=== PATIENT | female | born 2000 | race Caucasian/White ===

== ENCOUNTER → 2019-10-11 | Outpatient (CLI) | payer BC, OTHER ==
[2019-10-11 12:39] LABS: Basophils # (A) 0.1 k/uL (0-0.2); Basophils % (A) 0 %; Eosinophils # (A) 0.1 k/uL (0-0.7); Eosinophils % (A) 1 %; HGB 14.6 gm/dL (11.4-16.0); Lymphocytes # (A) 5.6 k/uL (1.0-4.8); Lymphocytes % (A) 37 %; MCH 30.2 pg (25.0-35.0); MCV 88.8 fL (80.0-100.0); Mean Platelet Volume 7.6; Monocytes # (A) 0.6 k/uL (0-1.0); Monocytes % (A) 4 %; Neutrophils # (A) 8.5 k/uL (1.3-7.7); Neutrophils % (A) 56 %; Platelet Count 334 k/uL (150-450); RBC 4.84 m/uL (3.80-5.40); RDW 13.8 % (11.5-15.5); WBC 15.3 k/uL (4.0-11.0)
[2019-10-11 17:49] LABS: ALT 13 U/L (8-44); AST 14 U/L (13-35); Albumin/Globulin Ratio 1.67 (1.60-3.17); Alkaline Phosphatase 66 U/L (41-126); BUN/Creat Ratio 16.25 Ratio (12.00-20.00); C Reactive Protein <0.4 mg/dL (0.0-0.8); Calcium 9.7 mg/dL (8.7-10.3); Carbon Dioxide 21.5 mmol/L (21.6-31.8); Chloride 103 mmol/L (96-109); Globulin 2.7 g/dL (1.6-3.3); Glucose 92 mg/dL (70-110); Non-African American GFR(CKD) 106.1 (60.0-200.0); Potassium 3.5 mmol/L (3.5-5.5); Sodium 138 mmol/L (135-145); Total Bilirubin 0.4 mg/dL (0.3-1.2); Total Protein 7.2 g/dL (6.2-8.2)
[2019-10-11 18:38] LABS: HCT 39.6 % (34.0-46.0); HGB 13.7 gm/dL (11.4-16.0); MCH 30.2 pg (25.0-35.0); MCHC 34.5 g/dL (31.0-37.0); MCV 87.3 fL (80.0-100.0); Mean Platelet Volume 8.2; Platelet Count 362 k/uL (150-450); RBC 4.53 m/uL (3.80-5.40); RDW 13.7 % (11.5-15.5); WBC 14.1 k/uL (4.0-11.0)
[2019-10-14 12:52] LABS: ALT 15; AST 23
[2019-10-14 12:53] LABS: Total Bilirubin 0.3
[2019-10-14 12:54] LABS: Calcium 9.4; Total Protein 7.1
[2019-10-14 13:12] LABS: Carbon Dioxide 22.8; Chloride 102
[2019-10-14 13:13] LABS: Sodium 138
[2019-10-14 13:14] LABS: African American GFR (CKD) 106.7; Alkaline Phosphatase 64
== END | disposition home or self-care (01) ==
LOC: LABWHC1 10:30
PROVIDERS: ATTEND General Practice
DX: K50.818 Crohn's disease of both small and large intestine with other complication (principal); D50.0 Iron deficiency anemia secondary to blood loss (chronic); A49.8 Other bacterial infections of unspecified site
CPT/HCPCS: 36415; 80053; 80280; 82397; 85025; 85027; 86140

== ENCOUNTER → 2020-02-26 | Outpatient (CLI) | payer BC, OTHER ==
[2020-02-26 11:28] LABS: Basophils # (A) 0.1 k/uL (0-0.2); Basophils % (A) 1 %; Eosinophils # (A) 0.1 k/uL (0-0.7); Eosinophils % (A) 1 %; HCT 38.8 % (34.0-46.0); HGB 13.1 gm/dL (11.4-16.0); Lymphocytes # (A) 2.9 k/uL (1.0-4.8); Lymphocytes % (A) 28 %; MCH 28.8 pg (25.0-35.0); MCHC 33.7 g/dL (31.0-37.0); MCV 85.3 fL (80.0-100.0); Mean Platelet Volume 7.6; Monocytes # (A) 0.3 k/uL (0-1.0); Monocytes % (A) 3 %; Neutrophils # (A) 6.7 k/uL (1.3-7.7); Neutrophils % (A) 65 %; Platelet Count 298 k/uL (150-450); RBC 4.55 m/uL (3.80-5.40); RDW 12.9 % (11.5-15.5); WBC 10.3 k/uL (4.0-11.0)
[2020-02-26 18:47] LABS: Albumin 4.6 g/dL (3.80-4.90); Albumin/Globulin Ratio 1.84 (1.60-3.17); Anion Gap 10.2 mmol/L (4.00-12.00); BUN/Creat Ratio 11.25 Ratio (12.00-20.00); C Reactive Protein 1.4 mg/dL (0.0-0.8); Calcium 9.4 mg/dL (8.7-10.3); Carbon Dioxide 25.8 mmol/L (21.6-31.8); Globulin 2.5 g/dL (1.6-3.3); Non-African American GFR(CKD) 106.1 (60.0-200.0); Potassium 4.1 mmol/L (3.5-5.5); Total Bilirubin 0.5 mg/dL (0.3-1.2); Total Protein 7.1 g/dL (6.2-8.2)
[2020-02-26 19:27] LABS: Erythrocyte Sedimentation Rate 27 mm/Hr (0-20)
== END | disposition home or self-care (01) ==
LOC: LABWHC1 10:26
PROVIDERS: ATTEND Nurse Practitioner
DX: K50.90 Crohn's disease, unspecified, without complications (principal); R19.7 Diarrhea, unspecified
CPT/HCPCS: 36415; 80053; 83993; 85025; 85652; 86140

== ENCOUNTER → 2020-12-24 | Outpatient (CLI) | payer BC, OTHER ==
--- NOTE | 2020-12-24 12:01 | XR ---
EXAMINATION TYPE: XR Hip Complete LT DATE OF EXAM: 12/24/2020 COMPARISON: NONE HISTORY: 20-year-old female M2 5.552 TECHNIQUE: 2 views FINDINGS: No acute fracture, subluxation, dislocation. Hip joint space appears maintained. IMPRESSION: No acute osseous abnormality seen.
== END | disposition home or self-care (01) ==
LOC: LABWHC1 07:56
PROVIDERS: ATTEND Nurse Practitioner Family
DX: M25.552 Pain in left hip (principal); R00.0 Tachycardia, unspecified
CPT/HCPCS: 36415; 73502; 83835

== ENCOUNTER → 2021-01-21 | Outpatient (CLI) | payer BC, OTHER ==
[2021-01-21 11:21] LABS: Basophils # (A) 0.03 X 10*3/uL (0.00-0.10); Basophils % (A) 0.3 %; Eosinophils # (A) 0.08 X 10*3/uL (0.04-0.35); Eosinophils % (A) 0.8 %; HCT 38.3 % (37.2-46.3); HGB 12.5 g/dL (12.0-15.0); Lymphocytes # (A) 3.46 X 10*3/uL (0.90-5.00); Lymphocytes % (A) 34.5 %; MCH 28.4 pg (27.0-32.0); MCHC 32.6 g/dL (32.0-37.0); Mean Platelet Volume 10.7 fL (9.5-12.2); Monocytes # (A) 0.48 X 10*3/uL (0.20-1.00); Monocytes % (A) 4.8 %; Neutrophils # (A) 5.95 X 10*3/uL (1.80-7.70); Neutrophils % (A) 59.3 %; Platelet Count 290 X 10*3/uL (140-440); WBC 10.03 X 10*3/uL (4.50-10.00)
[2021-01-21 15:06] LABS: African American GFR (CKD) 122.7 (60.0-200.0); Albumin 4.3 g/dL (3.8-4.9); Albumin/Globulin Ratio 1.49 (1.60-3.17); Anion Gap 17.4 mmol/L (4.00-12.00); BUN/Creat Ratio 12.38 Ratio (12.00-20.00); Blood Urea Nitrogen 9.9 mg/dL (9.0-27.0); C Reactive Protein 1.7 mg/dL (0.00-0.80); Calcium 9.3 mg/dL (8.7-10.3); Carbon Dioxide 18.8 mmol/L (21.6-31.8); Globulin 2.9 g/dL (1.6-3.3); Non-African American GFR(CKD) 105.9 (60.0-200.0); Potassium 4.1 mmol/L (3.5-5.5); Total Bilirubin 0.2 mg/dL (0.30-1.20); Total Protein 7.2 g/dL (6.2-8.2)
== END | disposition home or self-care (01) ==
LOC: LABWHC1 07:55
PROVIDERS: ATTEND Nurse Practitioner
DX: K50.80 Crohn's disease of both small and large intestine without complications (principal)
CPT/HCPCS: 36415; 80053; 85025; 86140

== ENCOUNTER 2021-03-12 11:59 | Emergency (ER) | payer BC, OTHER ==
--- NOTE | 2021-03-12 13:26 | ED ---
General Adult HPI - General Stated complaint: Lt Hip Pain Time Seen by Provider: 03/12/21 13:14 Source: RN notes reviewed - History of Present Illness Initial comments: 20-year-old female presents to the emergency Department with complaints of left hip pain that has been an ongoing issue for the past month. Patient states she has been seen by her primary care provider. She has already had x-rays and has done physical therapy twice a week for 4 weeks. States she has taken anti- inflammatory medications and oral steroids with no relief. Patient states she called her primary care provider this morning who said that she needed to come to the ER for further evaluation and treatment. Denies any injury, trauma, back pain, or pelvic pain; no foot drop, muscle weakness, or sharp/shooting pain. - Related Data Home Medications Medication Instructions Recorded Confirmed Dicyclomine [Bentyl] 20 mg PO QID PRN 03/12/21 03/12/21 Doxepin HCl [SINEquan] 100 mg PO DAILY 03/12/21 03/12/21 Multivitamins, Thera [Multivitamin 1 tab PO DAILY 03/12/21 03/12/21 (formulary)] Nadolol [Corgard] 20 mg PO BID 03/12/21 03/12/21 Omeprazole 20 mg PO DAILY 03/12/21 03/12/21 Vilazodone HCl [Viibryd] 40 mg PO DAILY 03/12/21 03/12/21 busPIRone HCl [Buspar] 10 mg PO BID 03/12/21 03/12/21 diphenhydrAMINE [Benadryl] 50 mg PO HS 03/12/21 03/12/21 metFORMIN HCL [Glucophage] 500 mg PO BID 03/12/21 03/12/21 rOPINIRole HCL [Requip] 2 mg PO HS 03/12/21 03/12/21 valACYclovir HCL [Valtrex] 1,000 mg PO DAILY 03/12/21 03/12/21 Previous Rx's Medication Instructions Recorded Ibuprofen [Motrin] 600 mg PO Q8HR PRN #30 tab 03/12/21 Allergies Allergy/AdvReac Type Severity Reaction Status Date / Time No Known Allergies Allergy Verified 03/12/21 14:40 Review of Systems ROS Statement: Those systems with pertinent positive or pertinent negative responses have been documented in the HPI. ROS Other: All systems not noted in ROS Statement are negative. General Exam Limitations: no limitations (This is a well-developed, well-nourished female in no acute distress.) General appearance: alert, in no apparent distress Respiratory exam: Present: normal lung sounds bilaterally. Absent: respiratory distress, wheezes, rales, rhonchi, stridor Cardiovascular Exam: Present: regular rate, normal rhythm, normal heart sounds. Absent: systolic murmur, diastolic murmur, rubs, gallop, clicks GI/Abdominal exam: Present: soft, normal bowel sounds. Absent: distended, tenderness, guarding, rebound, rigid Left Hip exam: Present: normal inspection, pelvic stability. Absent: full ROM (Range of motion limited by pain, weightbearing activity, and repositioning), tenderness, deformity, crepitus, external rotation, internal rotation, shortening Upper Leg exam: Present: normal inspection, full ROM. Absent: tenderness Knee exam: Present: normal inspection, full ROM. Absent: tenderness, swelling Lower Leg exam: Present: normal inspection, full ROM. Absent: tenderness, swelling Ankle exam: Present: normal inspection, full ROM Foot/Toe exam: Present: normal inspection, full ROM Neurovascular tendon exam: Present: no vascular compromise Back exam: Present: normal inspection Neurological exam: Present: alert, oriented X3, CN II-XII intact Psychiatric exam: Present: normal affect, normal mood Skin exam: Present: warm, dry, intact, normal color. Absent: rash Course Vital Signs 03/12/21 03/12/21 13:40 14:39 Temperature 98.9 F Pulse Rate 107 H 96 Respiratory 18 18 Rate Blood Pressure 129/71 O2 Sat by Pulse 96 Oximetry Medical Decision Making - Medical Decision Making 20-year-old female was evaluated for complaints of left hip pain 1 month. Upon exam, extremity appears normal, with no evidence deformity, dislocation, trauma, or injury. Patient is able to ambulate without difficulty and has slight decreased range of motion secondary to pain. This hip was x-rayed by her primary care provider and shows no acute osseous abnormality. Because patient has not had any injury and shows no signs of infection, no further imaging was ordered. Patient has also done 4 weeks of physical therapy twice weekly and has completed a course of oral steroids. Patient was given a dose of pain medication while present in the emergency department. Motrin was prescribed. Work note was provided. Patient will be discharged home to follow up with her primary care provider as well as with orthopedics as needed. Return parameters were discussed in detail. Patient verbalizes understanding and agrees with this plan. THis patient's care was discussed with my attending Dr. Aldana. Disposition Clinical Impression: Hip pain, left Disposition: HOME SELF-CARE Condition: Stable Instructions (If sedation given, give patient instructions): Arthralgia (ED), Hip Pain (ED) Additional Instructions: Rest as needed. Maintain mobility with regular gentle range of motion exercises. Follow-up with orthopedics for further evaluation and treatment of left hip pain. May take Motrin for discomfort. Return to the emergency department with any new, worsening, or concerning symptoms. Prescriptions: Ibuprofen [Motrin] 600 mg PO Q8HR PRN #30 tab PRN Reason: Pain Is patient prescribed a controlled substance at d/c from ED?: No Referrals: Tariq Tamayo III, MD [Primary Care Provider] - 1-2 days Fantasma Virk PAC [PHYSICIAN FISH AND WILDLIFE BIOLOGIST] - 1-2 days Time of Disposition: 14:21
[2021-03-12] MEDS ORDERED: KETOROLAC 30 MG/ML 1 ML VIAL IM STA (13:32)
[2021-03-12 13:46] VITALS: BP 129/71; RESP 18; TEMP 98.9
[2021-03-12] MEDS ORDERED: traMADol 50 MG STARTER PACK 3 TAB BTL PO STA (14:22)
[2021-03-12 14:40] VITALS: PULSE 96
== END 2021-03-12 14:39 | disposition home or self-care (01) ==
LOC: EC 11:59
DX: M25.552 Pain in left hip (principal)
CPT/HCPCS: 99283; 96372; J1885

== ENCOUNTER → 2021-04-30 | Outpatient (CLI) | payer BC, OTHER ==
--- NOTE | 2021-05-01 03:34 | MR ---
EXAMINATION TYPE: MR hip LT wo con DATE OF EXAM: 04/30/2021 COMPARISON: None HISTORY: Left hip pain, limited movement. Multiplanar multiecho imaging of the pelvis and both hips without contrast. On the T1 images there is abnormal decreased signal in the subcutaneous articular femoral heads bilat erally. This is larger on the left side that measures 18 x 8 mm. On the right side lesion measures 13 x 5 mm. The acetabula appear intact. There is no evidence of a soft tissue mass. There is bilateral hip joint effusions and larger on the left side. There is no free fluid in the pelvis. IMPRESSION: There is bilateral avascular necrosis of the femoral heads and slightly larger on the left side. Bila teral hip joint effusions and larger on the left side. No significant collapse of the articular surfa violeta.
== END | disposition home or self-care (01) ==
LOC: RADMRIMAIN 19:52
PROVIDERS: ATTEND Orthopaedic Surgery
DX: M87.852 Other osteonecrosis, left femur (principal); M87.851 Other osteonecrosis, right femur; M25.452 Effusion, left hip; M25.451 Effusion, right hip

== ENCOUNTER → 2021-06-04 | Outpatient (CLI) | payer BC, OTHER ==
[2021-06-04 11:44] LABS: Basophils # (A) 0.02 X 10*3/uL (0.00-0.10); Basophils % (A) 0.2 %; Eosinophils # (A) 0.05 X 10*3/uL (0.04-0.35); Eosinophils % (A) 0.6 %; HCT 37.6 % (37.2-46.3); HGB 12.3 g/dL (12.0-15.0); Immature Grans, Automated 0.3 %; Lymphocytes # (A) 2.79 X 10*3/uL (0.90-5.00); MCH 29.4 pg (27.0-32.0); MCHC 32.7 g/dL (32.0-37.0); MCV 89.7 fL (80.0-97.0); Mean Platelet Volume 11.3 fL (9.5-12.2); Monocytes # (A) 0.81 X 10*3/uL (0.20-1.00); Monocytes % (A) 9.3 %; NRBC Per 100 WBC 0 /100 WBCS (0.0-0.0); Neutrophils # (A) 5.03 X 10*3/uL (1.80-7.70); Neutrophils % (A) 57.6 %; Platelet Count 270 X 10*3/uL (140-440); RBC 4.19 X 10*6/uL (4.10-5.20); RDW 13.2 % (11.5-14.5); WBC 8.73 X 10*3/uL (4.50-10.00)
[2021-06-04 12:07] LABS: ALT 20 U/L (8-44); AST 21 U/L (13-35); African American GFR (CKD) 142.5 (60.0-200.0); Albumin 4.4 g/dL (3.8-4.9); Albumin/Globulin Ratio 1.63 (1.60-3.17); Alkaline Phosphatase 56 U/L (41-126); BUN/Creat Ratio 13.57 Ratio (12.00-20.00); Blood Urea Nitrogen 9.5 mg/dL (9.0-27.0); Calcium 9.4 mg/dL (8.7-10.3); Carbon Dioxide 21.3 mmol/L (20.0-27.5); Chloride 104 mmol/L (96-109); Globulin 2.7 g/dL (1.6-3.3); Glucose 99 mg/dL (70-110); Potassium 4.1 mmol/L (3.5-5.5); Sodium 139 mmol/L (135-145); Total Bilirubin <0.15 mg/dL (0.30-1.20); Total Protein 7.1 g/dL (6.2-8.2)
== END | disposition home or self-care (01) ==
LOC: LABWHC1 07:08
PROVIDERS: ATTEND Nurse Practitioner Family
DX: Z01.810 Encounter for preprocedural cardiovascular examination (principal)
CPT/HCPCS: 36415; 80053; 85025; 85730; 93005

== ENCOUNTER → 2021-07-28 | Outpatient (CLI) | payer BC, OTHER ==
[2021-07-28 14:45] LABS: Basophils # (A) 0.03 X 10*3/uL (0.00-0.10); Basophils % (A) 0.3 %; HCT 38.7 % (37.2-46.3); HGB 12.7 g/dL (12.0-15.0); Immature Grans, Automated 0.3 %; Lymphocytes # (A) 3.83 X 10*3/uL (0.90-5.00); Lymphocytes % (A) 38.6 %; MCH 29.7 pg (27.0-32.0); MCHC 32.8 g/dL (32.0-37.0); MCV 90.4 fL (80.0-97.0); Monocytes # (A) 0.57 X 10*3/uL (0.20-1.00); Monocytes % (A) 5.7 %; NRBC Per 100 WBC 0 /100 WBCS (0.0-0.0); Neutrophils # (A) 5.37 X 10*3/uL (1.80-7.70); Neutrophils % (A) 54.1 %; Platelet Count 254 X 10*3/uL (140-440); RBC 4.28 X 10*6/uL (4.10-5.20); RDW 12.8 % (11.5-14.5); WBC 9.93 X 10*3/uL (4.50-10.00)
[2021-07-28 15:06] LABS: Albumin 4.4 g/dL (3.8-4.9); Albumin/Globulin Ratio 1.69 (1.60-3.17); Anion Gap 13.3 mmol/L (10.00-18.00); BUN/Creat Ratio 31.67 Ratio (12.00-20.00); Calcium 9.2 mg/dL (8.7-10.3); Carbon Dioxide 22.7 mmol/L (20.0-27.5); Globulin 2.6 g/dL (1.6-3.3); Non-African American GFR(CKD) 129.4 (60.0-200.0); Total Bilirubin 0.2 mg/dL (0.30-1.20)
== END | disposition home or self-care (01) ==
LOC: LABWHC1 09:42
PROVIDERS: ATTEND Internal Medicine Gastroenterology
DX: K50.80 Crohn's disease of both small and large intestine without complications (principal)
CPT/HCPCS: 36415; 80053; 85025

== ENCOUNTER → 2021-08-19 | Outpatient (CLI) | payer BC, OTHER ==
[2021-08-19 08:54] LABS: INR 0.9 (<1.2); Partial Thromboplastin Time 25.1 sec (22.0-30.0); Prothrombin Time 10.2 sec (9.0-12.0)
[2021-08-19 10:38] LABS: HCT 37.2 % (37.2-46.3); HGB 12.1 g/dL (12.0-15.0); MCH 28.7 pg (27.0-32.0); MCHC 32.5 g/dL (32.0-37.0); MCV 88.4 fL (80.0-97.0); Mean Platelet Volume 10.7 fL (9.5-12.2); NRBC Per 100 WBC 0 /100 WBCS (0.0-0.0); Platelet Count 286 X 10*3/uL (140-440); RBC 4.21 X 10*6/uL (4.10-5.20); RDW 12.5 % (11.5-14.5); WBC 8.26 X 10*3/uL (4.50-10.00)
[2021-08-19 10:45] LABS: African American GFR (CKD) 142.5 (60.0-200.0); Albumin 4.3 g/dL (3.8-4.9); Albumin/Globulin Ratio 1.43 (1.60-3.17); Anion Gap 12.8 mmol/L (10.00-18.00); BUN/Creat Ratio 14.71 Ratio (12.00-20.00); Blood Urea Nitrogen 10.3 mg/dL (9.0-27.0); Calcium 9.4 mg/dL (8.7-10.3); Carbon Dioxide 23.2 mmol/L (20.0-27.5); Total Bilirubin 0.3 mg/dL (0.30-1.20); Total Protein 7.3 g/dL (6.2-8.2)
[2021-08-19 11:58] LABS: Appearance,Urine Cloudy (Clear); Bilirubin,Urine Negative (Negative); Blood,Urine Negative (Negative); Color,Urine Yellow (Yellow); Ketones,Urine Negative (Negative); Nitrite,Urine Negative (Negative); Specific Gravity,Urine 1.019 (1.001-1.030); Urobilinogen,Urine 0.2 (0.2,1.0)
[2021-08-19 12:34] LABS: Bacteria,Urine 3+ /HPF (None Seen)
== END | disposition home or self-care (01) ==
LOC: LABPAT 07:51
PROVIDERS: ATTEND Orthopaedic Surgery
DX: Z01.812 Encounter for preprocedural laboratory examination (principal)
CPT/HCPCS: 36415; 80053; 81001; 85027; 85610; 85730; 87070

== ENCOUNTER 2021-08-31 07:55 | Observation (INO) | payer BC, OTHER ==
[2021-08-27 13:03] VITALS: BMI 41.5
[~2021-08-31 07:55] MED LIST: ACETAMINOPHEN TAB 500 MG TAB PO PRN; DEXAMETHASONE SOD PHOSPHATE 4 MG/ML 1 ML VIAL IV ONE; GABAPENTIN 300 MG CAP PO PRN; LIDOCAINE 1% (10MG/ML) FOR IV START INTRADERMA PRN; MELOXICAM 7.5 MG TAB PO PRN; MIDAZOLAM 2 MG/2 ML VIAL IV PRN; ONDANSETRON 4 MG/2 ML VIAL IVP ONE; TRANEXAMIC ACID IN NACL,ISO-OS 1,000 MG in SALINE 1 100ML.BAG IVPB PRN
[2021-08-31 08:45] LABS: Glucose,Whole Blood 94 mg/dL (75-99)
[2021-08-31] MEDS: LACTATED RINGERS 1,000 ML IV SCH (08:49)
[2021-08-31] MEDS ORDERED: KETAMINE 10 MG/ML 20 ML VIAL ONE (08:53)
[2021-08-31] MEDS ORDERED: MIDAZOLAM 2 MG/2 ML VIAL ONE (08:53)
[2021-08-31] MEDS ORDERED: fentaNYL (PF) 50 MCG/ML 2 ML AMP ONE (08:53)
[2021-08-31] MEDS ORDERED: TRANEXAMIC ACID IN NACL,ISO-OS 1,000 MG/100 ML BAG ONE (08:53)
[2021-08-31] MEDS ORDERED: PROPOFOL 10 MG/ML 20 ML VIAL IV ONE (08:53)
[2021-08-31] MEDS ORDERED: ceFAZolin 1,000 MG in SODIUM CHLORIDE 0.9% 1,000 ML IRRIGATION ONE (08:56)
[2021-08-31] MEDS ORDERED: ROPIVACAINE 5 MG/ML 30 ML VIAL MISCELLANE ONE ×2 (09:19→10:12)
--- NOTE | 2021-08-31 10:18 | P.OP ---
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 The articulation is Oxinium on polyethylene. Anesthesia: spinal Surgeon: Italo Ochoa Alpine Patroller #1: Angela Mujica Estimated Blood Loss (ml): 300 Pathology: other (Femoral head) Condition: stable Disposition: PACU Indications for Procedure: After failure of conservative treatment we discussed the surgical and nonsurgical treatment options at length. Patient wishes to proceed with a total hip arthroplasty with a direct anterior approach. Complications specific to this procedure were discussed at length, including but not limited to infection, leg length discrepancy, dislocation, nerve injury, and fracture. Covid-19 was also discussed at length with the patient, and they are aware of the current policies and procedures. The patient was given the option of delaying surgery, but they elect to proceed knowing these risks. Patient is aware of all these complications and informed consent was obtained Operative Findings: The operative findings are consistent with severe avascular necrosis of the left hip femoral head collapse Description of Procedure: Patient was seen and evaluated in the preoperative area and the consent was reviewed. The operative site was marked with a skin marker. The patient was then brought to the operating room and given preoperative antibiotics intravenously. 1 g of Tranexamic acid was also given intravenously. A spinal anesthetic was administered by the anesthesia department. The patient was then placed on the Romance table with the bony prominences well-padded. The hip area was then prepped with a ChloraPrep solution and draped in the usual sterile f ashion. A universal timeout was then performed, which confirmed the patient's name, surgical site, ALLERGIES, and procedure being performed on the consent. Next the incision site was located at 1 cm distal and 2 cm lateral to the anterior superior iliac spine. The skin and subcutaneous tissues were sharply incised. Incision was carefully dissected down to the fascia overlying the tensor fascia alissa muscle. This fascia was then incised in line with the incision. Care was taken to stay laterally in order to avoid injuring the lateral femoral cutaneous nerve. Next, using blunt finger dissection, the tensor fascia alissa muscle was dissected off its investing fascia. The muscle was then carefully retracted laterally with a cobra retractor over the lateral neck of the femur. Next, the circumflex vessels were identified and cauterized using the AquaMantis device. The anterior hip capsule was then exposed. The capsule was then opened and an inverted T fashion. Cobra retractors were then placed intracapsularly. The retractors were maintained intracapsular throughout the procedure. The proximal femur was then visualized. Fluoroscopic x-rays were then taken in order to evaluate the preoperative leg lengths. A small amount of traction was placed on the leg. The femoral neck was then osteotomized at the appropriate level above the lesser trochanter. A small wedge of bone was then removed from the remaining femoral head. Next, using a corkscrew the femoral head was removed from the acetabulum. On gross visual inspection, the femoral head had evidence of avascular necrosis with femoral head collapse. The femoral head was then measured. Attention was then turned to the acetabulum. The acetabulum was exposed and any remaining labrum was excised. Sequential reaming of the acetabulum was performed using fluoroscopic guidance until there was a good bed of bleeding cancellus bone. When the appropriate size was reached, a trial was then placed. The position and fit of the trial was checked with fluoroscopy. The trial was then removed. Then, using fluoroscopic guidance, the final implant was impacted at 20 of anteversion and 40 of abduction, and fully seated in the acetabulum. 2 screws were then placed in the acetabulum. Again fluoroscopy was used to check position of the screws. Next, the liner was then impacted, with a 20 elevated liner located in the anterior superior quadrant. Component locking was confirmed. Attention was then directed to the femur. With the aid of the Romance table, the femur was externally rotated to approximately 130, extended, and adducted under the opposite leg. A side hook was then placed under the proximal femur, and the side hook elevator was used to elevate the proximal femur while releasing the capsule. Retractors were then placed. A capsular release was performed, as well as a release of the conjoined tendon, which afforded excellent visualization of the proximal femur. Next, a box osteotome was used to lateralize the proximal femur. A handyperson was then used to locate the femoral canal. Sequential broaching was then performed with appropriate size which afforded excellent fixation in the proximal femur. A trial was then placed with appropriate head and neck, and the hip was gently reduced with the aid of the Romance table. Fluoroscopy was then used to check position of the components, as well as to ensure equal leg lengths. The hip was then gently dislocated and the trials were then removed. Final implants were then impacted and the hip was again reduced. Final fluoroscopic x-rays confirmed that the components were in anatomic position, as well as equal leg lengths. The hip was also taken through range of motion, and found to be stable. The hip was then copiously irrigated with antibiotic solution with pulsatile lavage. The hip was then irrigated with Irrisept solution. The soft tissues were then injected with a ropivacaine solution. A second dose of 1 g of Tranexamic acid was also given intravenously. The fascia was then closed with 2-0 strata fix suture. The subcutaneous tissue was closed with 3-0 Vicryl. The subcuticular tissue was closed with 3-0 strata fix suture. The skin was then closed with Exofin skin glue. After the glue and dried, and Optifoam silver impregnated dressing was applied. The patient was then transferred to the recovery room in stable condition. The surgical first assistant TREVOR Artis was required due to the complexity of surgery, and the need for skilled surgical territory manager for positioning, draping, exposure, retraction, and closure of the wound.
[2021-08-31] MEDS ORDERED: HYDROmorphone 0.5 MG/0.5 ML SYRINGE IVP PRN ×2 (10:46)
[2021-08-31] MEDS ORDERED: MAGNESIUM HYDROXIDE 2,400 MG/10 ML CUP PO PRN (10:46)
[2021-08-31] MEDS ORDERED: ONDANSETRON 4 MG/2 ML VIAL IVP PRN (10:46)
[2021-08-31] MEDS ORDERED: NALOXONE 0.4 MG/ML 1 ML VIAL IV PRN (10:46)
[2021-08-31] MEDS ORDERED: HYDROcodone/APAP 7.5-325MG 1 EACH TAB PO PRN (10:48)
--- NOTE | 2021-08-31 11:20 | XR ---
EXAMINATION TYPE: XR Hip Limited LT DATE OF EXAM: 08/31/2021 Comparison: 04/12/2021 Clinical History: 22-year-old female Status post hip surgery, assess surgical alignment Findings: Images limited by patient body habitus and underpenetration. No evidence of periprostatic fracture. A lignment grossly anatomic. Both acetabular cup and femoral stem components appear well seated. Scatte red soft tissue air related to recent operation. Impression: Limitations due to body habitus. Otherwise, uncomplicated postoperative appearance left hip total art hroplasty.
[2021-08-31] MEDS: HYDROmorphone 0.5 MG/0.5 ML SYRINGE IVP PRN ×2 (11:32→11:44)
--- NOTE | 2021-08-31 11:48 | FL ---
EXAMINATION TYPE: FL guidance operating room, XR Hip Limited LT DATE OF EXAM: 08/31/2021 CLINICAL HISTORY: Left hip pain and avascular necrosis. TECHNIQUE: Fluoroscopy. Limited intraoperative views left hip. COMPARISON: Prior outside left hip x-ray April 12, 2021 FINDINGS: Fluoroscopic guidance was provided during left hip replacement procedure performed by Dr. Ochoa. A total of 43 seconds of fluoroscopic time was utilized during the procedure and 3 spot in traoperative images are acquired. Intraoperative images acquired show metallic hardware from left hip arthroplasty satisfactory positio n on frontal projection after placement. IMPRESSION: As Above.
[2021-08-31] MEDS ORDERED: HYDROmorphone 0.5 MG/0.5 ML SYRINGE IVP ONE ×2 (12:47)
[2021-08-31] MEDS: SODIUM CHLORIDE 0.9% 1,000 ML IV SCH (13:52)
[2021-08-31] MEDS: HYDROmorphone 1 MG/ML 1 ML SYRINGE IVP PRN ×2 (14:00→21:31)
[2021-08-31] MEDS: HYDROcodone/APAP 7.5-325MG 1 EACH TAB PO PRN ×2 (16:16→23:56)
[2021-08-31] MEDS ORDERED: DICYCLOMINE 20 MG TAB PO PRN (17:46)
[2021-08-31] MEDS ORDERED: SENNOSIDES-DOCUSATE SODIUM 1 EACH TAB PO SCH (21:00)
[2021-08-31] MEDS ORDERED: DOXEPIN 25 MG CAP PO SCH (21:00)
[2021-08-31] MEDS: busPIRone HCl 10 MG TAB PO SCH (21:08)
[2021-08-31] MEDS: ASPIRIN 81 MG PO SCH (21:09)
[2021-09-01] MEDS: SODIUM CHLORIDE 0.9% 1,000 ML IV SCH (05:22)
[2021-09-01] MEDS: HYDROcodone/APAP 7.5-325MG 1 EACH TAB PO PRN ×2 (06:26→13:00)
[2021-09-01 07:39] VITALS: BP 108/69; PULSE 116; RESP 17; TEMP 98.4
--- NOTE | 2021-09-01 07:43 | P.DS ---
Providers Expected date of discharge: 09/01/21 Attending physician: Italo Ochoa Consults: 08/31/21 10:46 Consult Physician Routine Consulting Provider: Karen Montiel Consult Reason/Comments: medical management Do you want consulting provider notified?: Yes Primary care physician: Tariq Tamayo - Discharge Diagnosis(es) (1) Avascular necrosis of bone of left hip Current Visit: Yes Status: Acute (2) Status post total hip replacement, left Current Visit: Yes Status: Acute Hospital Course: This is a 21-year-old female with known history of avascular necrosis of the left hip. The patient presents for evaluation. After discussion and consider ation patient elects to proceed with total hip arthroplasty with direct anterior approach. The patient is seen preoperatively by primary care physician and cleared for surgery. Patient is admitted to [facility] on 08/31/2021 for total hip arthroplasty with direct anterior approach. The procedure is performed without complication or sequelae. The patient is doing well postoperatively. Labs and vital signs are stable on day of discharge. On day of discharge patient's hip incision is healing well. There is minimal erythema. There is no drainage noted at this time. There is minimal soft tissue swelling to the hip and thigh. Patient has full foot and ankle motion without difficulty or pain. Neurovascular status to the lower extremity is intact. Patient is discharged to home in good condition. Please see med rec for accurate list of home medications. Patient Condition at Discharge: Good Plan - Discharge Summary Discharge Rx Participant: Yes New Discharge Prescriptions: New HYDROcodone/APAP 7.5-325MG [[place] 7.5-325] 1 - 2 tab PO Q6H PRN #32 tab PRN Reason: Pain Sennosides [Senokot] 2 tab PO DAILY PRN #60 tablet PRN Reason: Constipation Aspirin [Adult Low Dose Aspirin EC] 81 mg PO BID 30 Days #60 tab Ondansetron Odt [Zofran Odt] 1 tab PO Q8HR PRN #10 tab PRN Reason: Nausea No Action Ibuprofen [Motrin] 600 mg PO Q8HR PRN #30 tab PRN Reason: Pain valACYclovir HCL [Valtrex] 1,000 mg PO DAILY rOPINIRole HCL [Requip] 2 mg PO HS Vilazodone HCl [Viibryd] 40 mg PO QAM Nadolol [Corgard] 20 mg PO BID Dicyclomine [Bentyl] 20 mg PO QID PRN PRN Reason: Gi Upset metFORMIN HCL [Glucophage] 500 mg PO BID Omeprazole 20 mg PO QAM Doxepin HCl [SINEquan] 100 mg PO HS diphenhydrAMINE [Benadryl] 50 - 100 mg PO HS busPIRone HCl [Buspar] 10 mg PO BID Meloxicam [Mobic] 15 mg PO DAILY Discharge Medication List Dicyclomine [Bentyl] 20 mg PO QID PRN 03/12/21 [History] Doxepin HCl [SINEquan] 100 mg PO HS 03/12/21 [History] Ibuprofen [Motrin] 600 mg PO Q8HR PRN #30 tab 03/12/21 [Rx] Nadolol [Corgard] 20 mg PO BID 03/12/21 [History] Omeprazole 20 mg PO QAM 03/12/21 [History] Vilazodone HCl [Viibryd] 40 mg PO QAM 03/12/21 [History] busPIRone HCl [Buspar] 10 mg PO BID 03/12/21 [History] diphenhydrAMINE [Benadryl] 50 - 100 mg PO HS 03/12/21 [History] metFORMIN HCL [Glucophage] 500 mg PO BID 03/12/21 [History] rOPINIRole HCL [Requip] 2 mg PO HS 03/12/21 [History] valACYclovir HCL [Valtrex] 1,000 mg PO DAILY 03/12/21 [History] Aspirin [Adult Low Dose Aspirin EC] 81 mg PO BID 30 Days #60 tab 08/31/21 [Rx] HYDROcodone/APAP 7.5-325MG [[place] 7.5-325] 1 - 2 tab PO Q6H PRN #32 tab 08/31/21 [Rx] Meloxicam [Mobic] 15 mg PO DAILY 08/31/21 [History] Ondansetron Odt [Zofran Odt] 1 tab PO Q8HR PRN #10 tab 08/31/21 [Rx] Sennosides [Senokot] 2 tab PO DAILY PRN #60 tablet 08/31/21 [Rx] Follow up Appointment(s)/Referral(s): Italo Ochoa DO [Doctor of Osteopathic Medicine] - 2 Weeks Activity/Diet/Wound Care/Special Instructions: Weightbearing as tolerated with walker. Leave dressing intact. Dressing may be removed by home care nurse or by patient in 7 days. Then change dressing twice daily until follow up. May shower with initial dressing intact and after removal. If dressing become saturated, please remove. Please take aspirin 81mg twice daily for 30 days to prevent blood clots. Recommend use of compression stockings daily until follow up to help prevent swelling and blood clots. May remove at night before sleeping. Please follow-up with [facility] in 2 weeks and call with any questions or concerns, . Discharge Disposition: HOME WITH HOME HEALTH SERVICES
[2021-09-01] MEDS: busPIRone HCl 10 MG TAB PO SCH (07:51)
[2021-09-01] MEDS: ASPIRIN 81 MG PO SCH (07:52)
[2021-09-01 09:12] LABS: Basophils # (A) 0.03 X 10*3/uL (0.00-0.10); Basophils % (A) 0.2 %; Eosinophils # (A) 0.01 X 10*3/uL (0.04-0.35); Eosinophils % (A) 0.1 %; HCT 30.8 % (37.2-46.3); HGB 9.9 g/dL (12.0-15.0); Immature Grans, Automated 0.3 %; Lymphocytes % (A) 24.8 %; MCH 28.7 pg (27.0-32.0); MCHC 32.1 g/dL (32.0-37.0); MCV 89.3 fL (80.0-97.0); Mean Platelet Volume 11.1 fL (9.5-12.2); Monocytes # (A) 1.09 X 10*3/uL (0.20-1.00); Monocytes % (A) 8.7 %; NRBC Per 100 WBC 0 /100 WBCS (0.0-0.0); Neutrophils # (A) 8.23 X 10*3/uL (1.80-7.70); Neutrophils % (A) 65.9 %; Platelet Count 222 X 10*3/uL (140-440); RBC 3.45 X 10*6/uL (4.10-5.20); RDW 12.4 % (11.5-14.5)
[2021-09-01] MEDS: LACTATED RINGERS 1,000 ML IV SCH (10:24)
--- NOTE | 2021-09-01 14:13 | P.CONS ---
History of Present Illness - Reason for Consult Consult date: 09/01/21 Medical management postop left total hip arthroplasty - History of Present Illness This is a pleasant 21-year-old female who follows with Dr. Tamayo in the outpatient setting and was recently admitted under orthopedic services and underwent left total hip arthroplasty with direct anterior approach with Dr. Ochoa secondary to a known history of avascular necrosis of the left hip. Patient is being closely monitored and is postop day #1. Patient reports to doing relatively well after the procedure and pain is manageable at this time. Patient reports to passing gas although denies any bowel movements. Patient is urinating without difficulty. Patient has a past medical history of avascular necrosis along with sinus tachycardia hypertension, gastroesophageal reflux disease, Crohn's, PCO S, also anxiety and depression. Patient denies smoking and denies alcohol or illicit drug use. Patient reports to having presurgical screening done with her primary care provider Dr. Tamayo. Patient denies chest pain, shortness of breath, or palpitations. Patient is afebrile. No reports of nausea or vomiting and patient is tolerating diet. Labs: WBC is 12.5, hemoglobin is 9.9, platelets are 222 Review Of Systems: Constitutional: No fever, no chills, no night sweats. No weight change. No weakness, fatigue or lethargy. No daytime sleepiness. EENT: No headache. No blurred vision or double vision, no loss of vision. No loss of Hearing, no ringing in the ears, no dizziness. No nasal drainage or congestion. No epistaxis. No sore throat. Lungs: No shortness of breath, cough, no sputum production. No wheezing. Cardiovascular: No chest pain, no lower extremity edema. No palpitations. No paroxysmal nocturnal dyspnea. No orthopnea. No lightheadedness or dizziness. No syncopal episodes. Abdominal: No abdominal pain. No nausea, vomiting. No diarrhea. No constipation. No bloody or tarry stools.. No loss of appetite. Genitourinary: No dysuria, increased frequency, urgency. No urinary retention. Musculoskeletal: Reports some left hip myalgias. No muscle weakness, no gait dysfunction, no frequent falls. No back pain. No neck pain. Integumentary: No wounds, no lesions. No rash or pruritus. No unusual bruising. No change in hair or nails. Neurologic: No aphasia. No facial droop. No change in mentation. No head injury. No headache. No paralysis. No paresthesia. Psychiatric: No depression. No anxiety. No mood swings. Endocrine: No abnormal blood sugars. No weight change. No excessive sweating or thirst. No cold intolerance. PHYSICAL EXAMINATION: GENERAL: The patient is alert and oriented x4, Well developed, well nourished. HEENT: Pupils are round and equally reacting to light. EOMI. no scleral icterus. No conjunctival pallor. Normocephalic, atraumatic. No pharyngeal erythema. No thyromegaly. CARDIOVASCULAR: S1 and S2 muffled PULMONARY: diminished breath sounds bilaterally with no wheezing or rhonchi noted. ABDOMEN: soft. Nontender on exam. obese. non-distended, normoactive bowel sounds. No palpable organomegaly. MUSCULOSKELETAL: No joint swelling or deformity. EXTREMITIES: No cyanosis, clubbing, or pedal edema. Right hip surgical dressing is intact NEUROLOGICAL: Gross neurological examination did not reveal any focal deficits. Diffuse weakness SKIN: No rashes. Assessment: Status post left total hip arthroplasty with anterior approach with Dr. Ochoa Gastroesophageal reflux disease Mild leukocytosis, possibly reactive secondary to surgery Hypertension History of Crohn's, not in exacerbation PCOS history History of anxiety, depression GI prophylaxis DVT prophylaxis Full code Plan: Recommend to continue with current medications and management per orthopedic services. Patient follows with Dr. Tamayo in the outpatient setting and patient is currently maintained on nadolol and reports she takes this for her tachycardia as opposed to blood pressure. Patient is mildly hypotensive with systolic readings in the 90s to low 100s and instructed the patient to monitor blood pressures closely and hold if systolic is less than 100. Patient reports to passing gas although no bowel movement yet and recommend increased activity as tolerated and also encourage incentive spirometer use at least 10 times every hour while awake. Patient encouraged to follow-up with primary care provider on discharge along with scheduled appointment with orthopedics. Pain management and DVT prophylaxis per orthopedics. Recommend outpatient follow-up of repeat labs of CBC in one week. We we will continue to follow with orthopedics during hospitalization. Thank you for this consultation. The impression and plan of care has been dictated by Tara Perez, nurse practitioner as directed. MD Jude I have performed a history and examination and MDM of this patient, discussed the same with the dictator, and agree with the dictator's assessment and plan as written ,documented as a scribe. Based on total visit time, I have performed more than 50% of the visit. Any additional findings or plans will be noted. Past Medical History Past Medical History: GERD/Reflux, Hypertension Additional Past Medical History / Comment(s): Chron's, PCOS. History of Any Multi-Drug Resistant Organisms: None Reported Past Surgical History: No Surgical Hx Reported Additional Past Surgical History / Comment(s): Core Decompression right hip. Past Anesthesia/Blood Transfusion Reactions: No Reported Reaction Past Psychological History: Anxiety, Depression Smoking Status: Never smoker Past Alcohol Use History: None Reported Past Drug Use History: None Reported - Past Family History Mother Family Medical History: No Reported History Medications and Allergies Home Medications Medication Instructions Recorded Confirmed Type Dicyclomine [Bentyl] 20 mg PO QID PRN 03/12/21 08/31/21 History Doxepin HCl [SINEquan] 100 mg PO HS 03/12/21 08/27/21 History Ibuprofen [Motrin] 600 mg PO Q8HR PRN #30 tab 03/12/21 08/27/21 Rx Nadolol [Corgard] 20 mg PO BID 03/12/21 08/31/21 History Omeprazole 20 mg PO QAM 03/12/21 08/27/21 History Vilazodone HCl [Viibryd] 40 mg PO QAM 03/12/21 08/27/21 History busPIRone HCl [Buspar] 10 mg PO BID 03/12/21 08/27/21 History diphenhydrAMINE [Benadryl] 50 - 100 mg PO HS 03/12/21 08/27/21 History metFORMIN HCL [Glucophage] 500 mg PO BID 03/12/21 08/27/21 History rOPINIRole HCL [Requip] 2 mg PO HS 03/12/21 08/27/21 History valACYclovir HCL [Valtrex] 1,000 mg PO DAILY 03/12/21 08/27/21 History Aspirin [Adult Low Dose Aspirin EC] 81 mg PO BID 30 Days #60 tab 08/31/21 Rx HYDROcodone/APAP 7.5-325MG [[place] 1 - 2 tab PO Q6H PRN #32 tab 08/31/21 Rx 7.5-325] Meloxicam [Mobic] 15 mg PO DAILY 08/31/21 08/31/21 History Ondansetron Odt [Zofran Odt] 1 tab PO Q8HR PRN #10 tab 08/31/21 Rx Sennosides [Senokot] 2 tab PO DAILY PRN #60 tablet 08/31/21 Rx Allergies Allergy/AdvReac Type Severity Reaction Status Date / Time No Known Allergies Allergy Verified 08/31/21 08:20 Physical Exam Vitals: Vital Signs Temp Pulse Resp BP Pulse Ox 09/01/21 07:38 98.4 F 116 H 17 108/69 96 09/01/21 02:00 97.8 F 107 H 18 98/60 95 08/31/21 20:00 17 08/31/21 17:33 99.3 F 116 H 17 116/80 92 L 08/31/21 13:56 98.3 F 101 H 18 132/76 95 08/31/21 13:23 98.3 F 101 H 17 131/84 94 L 08/31/21 13:00 80 15 120/61 98 08/31/21 12:45 91 18 118/59 96 08/31/21 12:30 98 17 122/62 95 08/31/21 12:15 91 17 121/61 94 L 08/31/21 12:00 88 16 120/67 93 L 08/31/21 11:47 90 16 129/73 94 L 08/31/21 11:30 85 16 127/57 96 08/31/21 11:18 96 16 123/73 96 08/31/21 11:00 87 19 115/69 96 08/31/21 10:50 88 18 115/72 96 08/31/21 10:35 97.8 F 98 16 104/78 100 Intake and Output 08/31/21 09/01/21 09/01/21 22:59 06:59 14:59 Intake Total 480 1080 Output Total 1301 Balance -821 1080 Intake: Oral 480 1080 Output: Urine 1300 Stool 1 Other: Voiding Method Toilet # Voids 1 2 Results CBC & Chem 7: 09/01/21 05:55
== END 2021-09-01 13:36 | disposition home or self-care (01) ==
LOC: OR 07:55 → 4SSUR 10:35 → OR 09-01 07:35
PROVIDERS: ADMIT Orthopaedic Surgery; ATTEND Orthopaedic Surgery
DX: M87.9 Osteonecrosis, unspecified (principal); I10 Essential (primary) hypertension; D72.829 Elevated white blood cell count, unspecified; E78.5 Hyperlipidemia, unspecified; K30 Functional dyspepsia; K50.90 Crohn's disease, unspecified, without complications; Z97.3 Presence of spectacles and contact lenses; Z87.11 Personal history of peptic ulcer disease; E28.2 Polycystic ovarian syndrome; F32.A Depression, unspecified; Z98.890 Other specified postprocedural states; Z82.49 Family history of ischemic heart disease and other diseases of the circulatory system; R73.03 Prediabetes; F41.9 Anxiety disorder, unspecified; Z79.84 Long term (current) use of oral hypoglycemic drugs; Z79.1 Long term (current) use of non-steroidal anti-inflammatories (NSAID); Z79.899 Other long term (current) drug therapy; Z79.82 Long term (current) use of aspirin; Z88.6 Allergy status to analgesic agent
CPT/HCPCS: 97161; 97166; 81025; 86900; 86901; 88305; 85025; 86850; 88311; 73501; 27130; G0378; C1776; J2250; J1100; J0690 ×3; J2405; J3010; J1170 ×2; J2795; J2704